=== PATIENT | female | born 2000 | race Asian ===

== ENCOUNTER 2018-01-12 20:31 | Emergency (ER) | payer OTHER, MEDICAID ==
[2018-01-12] MEDS ORDERED: ONDANSETRON 4 MG/2 ML VIAL IVP ONE (21:06)
[2018-01-12] MEDS ORDERED: NS 1,000 ML IV ONE (21:06)
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
[2018-01-12 21:12] LABS: PLATELET COUNT 305 10^3/uL (150-400)
[2018-01-12] MEDS ORDERED: KETOROLAC 15 MG/1 ML SDV ONE (21:43)
[2018-01-12] MEDS ORDERED: KETOROLAC 15 MG/1 ML SDV IVP ONE (21:43)
[2018-01-12] MEDS ORDERED: ONDANSETRON 4MG PREPACK#2 BTL TAKEHOME ONE (22:36)
[2018-01-12 22:52] VITALS: BP 109/74
== END 2018-01-12 22:51 | disposition home or self-care (01) ==
DX: R10.84 Generalized abdominal pain (principal)
CPT/HCPCS: 96374; J1885; J2405

== ENCOUNTER 2018-06-28 00:24 | Emergency (ER) | payer OTHER, MEDICAID ==
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
[2018-06-28] MEDS ORDERED: ACETAMINOPHEN 500 MG TAB PO ONE (01:35)
[2018-06-28 02:33] VITALS: BP 119/75
== END 2018-06-28 02:32 | disposition home or self-care (01) ==
DX: F43.9 Reaction to severe stress, unspecified (principal); F41.9 Anxiety disorder, unspecified

== ENCOUNTER 2018-11-08 18:19 | Observation (INO) | payer OTHER, MEDICAID ==
[2018-11-08] MEDS ORDERED: DEXAMETHASONE 10 MG/ML VIAL IVP ONE (19:03)
[2018-11-08] MEDS ORDERED: METOCLOPRAMIDE 10 MG/2 ML VIAL IVP ONE (19:03)
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
[2018-11-08] MEDS ORDERED: NS 1,000 ML IV ONE (19:50)
[2018-11-08 22:11] LABS: PLATELET COUNT 301 10^3/uL (150-400)
[2018-11-08] MEDS ORDERED: LORazepam 0.5 MG TAB PO PRN (22:19)
[2018-11-08] MEDS ORDERED: ONDANSETRON 4 MG/2 ML VIAL IVP PRN (22:19)
[2018-11-08] MEDS ORDERED: IBUPROFEN 200 MG TAB PO PRN (22:19)
[2018-11-08] MEDS ORDERED: ACETAMINOPHEN 325 MG TAB PO PRN (22:19)
[2018-11-08] MEDS ORDERED: ONDANSETRON DISINTEGRATING 4 MG TAB PO PRN (22:19)
[2018-11-08] MEDS ORDERED: NS 1,000 ML IV SCH (22:30)
--- NOTE | 2018-11-08 22:41 | CPEKG ---
Test Reason : OPEN Blood Pressure : / mmHG Vent. Rate : 140 BPM Atrial Rate : 142 BPM P-R Int : 096 ms QRS Dur : 093 ms QT Int : 405 ms P-R-T Axes : 024 063 030 degrees QTc Int : 618 ms Sinus tachycardia Borderline Q waves in lateral leads Prolonged QT interval Confirmed by Betty Castellanos ([id number]) on 11/08/2018 10:40:44 PM Referred By: BETTY CASTELLANOS Confirmed By:Betty Castellanos
--- NOTE | 2018-11-08 22:41 | CPEKG ---
Test Reason : OPEN Blood Pressure : / mmHG Vent. Rate : 109 BPM Atrial Rate : 115 BPM P-R Int : 143 ms QRS Dur : 101 ms QT Int : 340 ms P-R-T Axes : 069 063 037 degrees QTc Int : 458 ms Sinus tachycardia Confirmed by Betty Castellanos ([id number]) on 11/08/2018 10:41:04 PM Referred By: BETTY CASTELLANOS Confirmed By:Betty Castellanos
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
[2018-11-09 04:28] LABS: PLATELET COUNT 282 10^3/uL (150-400)
--- NOTE | 2018-11-09 13:35 | CPEKG ---
Test Reason : OPEN Blood Pressure : / mmHG Vent. Rate : 151 BPM Atrial Rate : 152 BPM P-R Int : 103 ms QRS Dur : 089 ms QT Int : 375 ms P-R-T Axes : 060 062 048 degrees QTc Int : 595 ms Sinus tachycardia Borderline Q waves in lateral leads Prolonged QT interval Confirmed by Cosme Harrell ([id number]) on 11/09/2018 1:35:08 PM Referred By: Anneliese Min Confirmed By:Cosme Harrell
--- NOTE | 2018-11-09 14:22 | ASMTCMCOM ---
CM Note CM Note Notes: 11/09/2018 Case Management Note Discussed pt during rounds this morning. Pt admitted for headache, SVT and medication reaction. Met w/pt and family members to discuss d/c needs. Referral to [facility]. Provided info for CAPS program and [facility]. Pt lives at [facility]. Case Management d/c poc: independent with follow up as directed. Case Management available if needs change. Date Signed: 11/09/2018 02:22 PM Electronically Signed By:Flori Salguero RN
--- NOTE | 2018-11-09 15:24 | HOSPPROG ---
Hospitalist Progress Note Assessment/Plan: #Benadryl Reaction, Allergic response #Sinus Tachycardia and possible SVT following diphenhydramine administration -refused meds -improving but intermittent mild sinus tachycardia is present #chest pain, reproducible, unclear etiology #Query generalized anxiety #ARMENTA, mostly left sided. no visual deficits or complaints. no n/v. Likely tension ARMENTA Plan: The pt is very anxious and frustrated about the possible reaction to Benadryl. She reports ongoing chest pain, anxiety, frustration, and concern for nursing home damage or current damage to her heart. She denies SOB, palpitations, or leg swelling. She does reports substernal chest pressure which is reproducible. It is unclear to me if the intermittent sinus tach is due to the Benadryl from last night (short half life) or if its a stress or anxiety response. She denies any hx of anxiety or psychiatric disease. Given her concerns, will check a troponin and an echocardiogram. Repeat EKG in the a.m. I've offered Tylenol for her ARMENTA, but she refuses Objective: Vital Signs Temp Pulse Resp BP Pulse Ox 37.1 C 83 16 100/58 L 96 11/09/18 12:00 11/09/18 12:00 11/09/18 12:00 11/09/18 12:00 11/09/18 12:00 Laboratory Results 11/09/18 03:32 11/09/18 03:32 11/08/18 11/09/18 11/10/18 05:59 05:59 05:59 Intake Total 1200 Balance 1200 - Time Spent With Patient Time Spent with Patient: greater than 35 minutes Time Spent with Patient: Greater than 35 minutes spent on this patients care, greater than 50% of time spent counseling, educating, and coordinating care regarding the above mentioned plan. - Physical Exam Constitutional: no apparent distress Eyes: PERRL Ears, Nose, Mouth, Throat: moist mucous membranes, hearing normal Cardiovascular: regular rate and rhythym, no murmur, rub, or gallop Respiratory: no respiratory distress, no rales or rhonchi, clear to auscultation Gastrointestinal: normoactive bowel sounds Skin: warm Neurologic: AAOx3 Psychiatric: interacting appropriately, not anxious, not encephalopathic Lymph, Heme, Immunologic: No petechiae ICD10 Worksheet Patient Problems: Problems Problem Status Onset Medication reaction Acute Migraine headache Acute
--- NOTE | 2018-11-09 16:25 | ECHO ---
[email or web address] [address] [address] Main: [phone] Echocardiography Examination Transthoracic Name: SRAVAN RIDDLE MR#: [id number] Study Date: 11/09/2018 Study Time: 03:27 PM Date of : 2000 Age: 18 year(s) Height: 162.6 cm (64 in.) Weight: 73.48 kg (162 lb.) BSA: 1.79 m2 Gender: Female Examination: Echo Indication: Chest Pain, tachycardia Image Quality: Contrast: Requested by: Marcos Armstrong BP: 100 mmHg/58 mmHg Heart Rate: 84 bpm Rhythm: Indication: Chest Pain, tachycardia Procedure Staff Referring Physician: Emissions Repair Technician: Martha Cullen [facility] Reading Physician: Bjorn Vega MD Requesting Provider: Ordering Physician: Marcos Armstrong Indication: Chest Pain, tachycardia Measurements Chambers AV/MV Label Value Normal Value Label Value Normal Value EF upper range (%) 70 % AV PGmax 4 mmHg IVSd, 2D 0.7 cm (0.6cm - 1.1cm) AV Vmax, Caliper 0.98 m/s (1m/s - 1.7m/s) LVDd, 2D 4.2 cm (3.9cm - 5.3cm) JUICE D (continuity eq. 2.4 cm2 LVDs, 2D 3.1 cm (2.1cm - 4cm) Vmax) LVEF, 2D 54 % (54% - 74%) MV A Vmax 0.38 m/s LVEF, BP 62 % (55% - 70%) MV DT 144 ms LVEF, MOD2 56 % (55% - 70%) MV E' lateral 0.15 m/s LVEF, MOD4 68 % (55% - 70%) MV E' mean 0.12 m/s LVOT PGmax 4 mmHg MV E' septal 0.09 m/s LVOT Vmax 0.94 m/s (0.7m/s - 1.1m/s) MV E Vmax 0.64 m/s LVOTd 1.8 cm (1.8cm - 2cm) MV E/A 1.68 LVPWd, 2D 0.6 cm MV E/E' lateral 4.2 RVDd, 2D 2.7 cm (1.9cm - 3.8cm) MV E/E' mean 5.33 TAPSE 2.1 cm MV E/E' septal 6.9 (2.4 - 2.4) LA Area, A2C 13.1 cm2 (0cm2 - 20cm2) TV/PV LA Volume, A2C 29 ml (22ml - 52ml) Label Value Normal Value LADs, 2D 2.6 cm (2.7cm - 3.8cm) PV PGmax 4 mmHg Additional Vessels PV Vmax, Caliper 1.03 m/s (0.6m/s - 0.9m/s) Patient: SRAVAN RIDDLE Study Date: 11/09/2018 Page 1 of 3 03:27 PM Label Value Normal Value AoRoot, MM 2.8 cm (2.2cm - 3.7cm) Conclusions Left Ventricle: Left ventricle is normal in size. Normal global systolic left ventricular function. Mitral Valve: Normal . Trivial mitral regurgitation. Aortic Valve: No aortic valve regurgitation. There is no aortic stenosis. Aorta: The aortic root size in M-mode measures 2.8 cm. Aorta Measurements AoRoot, MM is 2.8 cm. Pericardium: No pericardial effusion. Findings Left Ventricle: Left ventricle is normal in size. Normal global systolic left ventricular function. EF evaluated by visual assessment. Left ventricle wall thickness is normal. There is no regional wall motion abnormalities. Left ventricular diastolic function parameters are normal. Right Ventricle: Normal size right ventricle. Right ventricular wall thickness is normal. Right ventricular systolic function is normal. Pulmonary artery pressure normal. Left Atrium: The left atrium is normal in size. Right Atrium: The right atrium is normal in size. Mitral Valve: Normal . Trivial mitral regurgitation. No mitral valve stenosis. Aortic Valve: Aortic leaflets exhibit normal cuspal separation. No aortic valve regurgitation. There is no aortic stenosis. Tricuspid Valve: Tricuspid valve leaflets are normal in appearance and function. Trivial tricuspid regurgitation. No tricuspid valve stenosis. Pulmonic Valve: Pulmonic leaflets exhibit normal cuspal separation. No pulmonic valve regurgitation is evident. There is no pulmonic valve stenosis. Aorta: The aorta is normal. The aortic root size in M-mode measures 2.8 cm. Aorta Measurements AoRoot, MM is 2.8 cm. Pulmonary Artery: Patient: SRAVAN RIDDLE Study Date: 11/09/2018 Page 2 of 3 03:27 PM The pulmonary artery morphology appears normal. IVC: The inferior vena cava is normal in size and course. Pericardium: No pericardial effusion. No pleural effusion present. Exam Details Procedure Ordered: Echo (No Signature Object) Patient: SRAVAN RIDDLE Study Date: 11/09/2018 Page 3 of 3 03:27 PM [id number]
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
--- NOTE | 2018-11-10 14:49 | ASMTLACE ---
SHARON Length of stay for Answers: 1 day current admission Acuity / Level of Answers: No Care: Did the patient have an inpatient admission? Comorbidities - select Answers: Opioid dependence all that apply / Chronic pain # of Emergency department Answers: 1-2 visits in the last 6 months Score: 6 Date Signed: 11/10/2018 02:48 PM Electronically Signed By:Flori Salguero RN
--- NOTE | 2018-11-10 14:52 | ASDISCHSUM ---
Discharge Information Plan Status:Home with No Needs Medically Cleared to Leave:11/09/2018 Discharge Date:11/09/2018 CM D/C Disposition:Home, Routine, Self-Care ADT D/C Disposition:Home, Routine, Self-Care Projected Discharge Date:11/09/2018 Transportation at D/C:Family Discharge Delay Reason: Follow-Up Date:11/09/2018 Discharge Slot: Final Diagnosis: Placement Information Patient Contact Information Contact Name:MILTON Relationship:Arthur Address: Work Phone: City: [facility] Phone: State/[place] [employer] Code: Email: Financial Information Financial Class:HMO and PPO Plans Primary Plan Desc:[employer] Primary Plan Number:[id number] Secondary Plan Desc:[employer] Secondary Plan Number:[id number] Assessment Information LACE [employer]ACE Length of stay for Answers: 1 day current admission Acuity / Level of Answers: No Care: Did the patient have an inpatient admission? Comorbidities - select Answers: Opioid dependence all that apply / Chronic pain # of Emergency department Answers: 1-2 visits in the last 6 months Score: 6 Date Signed: 11/10/2018 02:48 PM Electronically Signed By:Flori Salguero RN [facility] CM Progress Note CM Note CM Note Notes: 11/09/2018 Case Management Note Discussed pt during rounds this morning. Pt admitted for headache, SVT and medication reaction. Met w/pt and family members to discuss d/c needs. Referral to [facility]. Provided info for CAPS program and [facility]. Pt lives at [facility]. Case Management d/c poc: independent with follow up as directed. Case Management available if needs change. Date Signed: 11/09/2018 02:22 PM Electronically Signed By:Flori Salguero RN Case Management Discharge Plan Note Case Management Discharge Discharge Order Complete? Answers: Yes Patient to Obtain Answers: Independently Medications Transportation Arranged Answers: Family/Friends Discharge Comments Notes: 11/10/2018 Case Management Note Pt to discharge independent with follow up as directed. Date Signed: 11/10/2018 02:51 PM Electronically Signed By:Flori Salguero RN Intervention Information
[2018-11-10 16:04] VITALS: BP 110/72
--- NOTE | 2018-11-10 16:34 | CPEKG ---
Test Reason : OPEN Blood Pressure : / mmHG Vent. Rate : 093 BPM Atrial Rate : 092 BPM P-R Int : 140 ms QRS Dur : 088 ms QT Int : 354 ms P-R-T Axes : 068 077 060 degrees QTc Int : 441 ms Sinus rhythm Confirmed by Bjorn Vega ([id number]) on 11/10/2018 4:33:50 PM Referred By: Anneliese Min Confirmed By:Bjorn Vega
== END 2018-11-10 16:10 | disposition home or self-care (01) ==
LOC: F2W 23:42
PROVIDERS: ADMIT Family Medicine; ATTEND Family Medicine
DX: R00.0 Tachycardia, unspecified (principal); T45.0X5A Adverse effect of antiallergic and antiemetic drugs, initial encounter; R51 Headache; M54.5 Low back pain; F41.9 Anxiety disorder, unspecified
CPT/HCPCS: 71046; 93005; 93306; 96374; 99285; G0378; 80307; G0480; J1100; J1200; J2765